=== PATIENT | male | born 1995 | race Caucasian/White ===

== ENCOUNTER 2021-07-26 01:02 | Emergency (ER) | payer MEDICAID ==
[2021-07-26] MEDS ORDERED: Midazolam 1 MG/ML 2 ML SDV ONE ×2 (01:42→02:03)
[2021-07-26] MEDS ORDERED: Haloperidol Lactate 5 MG/ML SDV ONE ×3 (01:43→02:03)
[2021-07-26] MEDS ORDERED: Haloperidol Lactate 5 MG/ML SDV IM ONE ×2 (01:43→02:03)
[2021-07-26] MEDS ORDERED: LORazepam 2 MG/ML SDV IM ONE (01:45)
[2021-07-26] MEDS ORDERED: LORazepam 2 MG/ML SDV ONE (01:46)
[2021-07-26] MEDS ORDERED: Midazolam 1 MG/ML 2 ML SDV IM ONE (02:03)
== END 2021-07-26 09:10 ==
LOC: JD.ED 01:02
DX: F10.129 Alcohol abuse with intoxication, unspecified (principal); R45.1 Restlessness and agitation; Y90.5 Blood alcohol level of 100-119 mg/100 ml
CPT/HCPCS: 36415; 80053; 80307; 85025; 96372; 99284; J1630; J2060; J2250; 99285

== ENCOUNTER 2021-08-25 14:24 | Emergency (ER) | payer SELFPAY ==
[2021-08-25] MEDS ORDERED: Dextrose 5%-0.9% NaCl 1,000 ML IV SCH (15:15)
[2021-08-25 15:56] LABS: CORONAVIRUS COVID-19 NAA NEGATIVE (NEGATIVE)
== END 2021-08-25 17:30 | disposition home or self-care (01) ==
LOC: JD.ED 14:24
DX: L73.9 Follicular disorder, unspecified (principal); Z20.822 Contact with and (suspected) exposure to COVID-19
CPT/HCPCS: 0240U; 36415; 71045; 80053; 80306; 80307; 81001; 82009; 82947; 83605; 83735; 85025; 85652; 86140; 86308; 99285; J7042

== ENCOUNTER 2021-08-26 11:25 | Emergency (ER) | payer SELFPAY ==
[2021-08-26] MEDS ORDERED: Sodium Chloride 0.9% 10 ML Syringe FLUSH PRN (11:55)
[2021-08-26] MEDS ORDERED: Ketorolac 30 MG/ML SDV IVPUSH ONE (11:56)
[2021-08-26] MEDS ORDERED: Sodium Chloride 0.9% 1,000 ML IV ONE (12:03)
[2021-08-26] MEDS ORDERED: Acetaminophen 325 MG Tab PO ONE (13:42)
== END 2021-08-26 14:05 | disposition home or self-care (01) ==
LOC: JD.ED 11:25
DX: B34.9 Viral infection, unspecified (principal)
CPT/HCPCS: 36415; 36600; 70450; 80053; 80306; 80307; 82803; 83735; 85025; 96374; 99284; A9270; J1885; J7030; J3490

== ENCOUNTER 2022-04-08 08:22 | Emergency (ER) | payer SELFPAY | END 2022-04-08 09:36 | disposition home or self-care (01) | LOC: JD.ED 08:22 | DX: K08.89 Other specified disorders of teeth and supporting structures (principal); F17.210 Nicotine dependence, cigarettes, uncomplicated | CPT/HCPCS: 99282 ==

== ENCOUNTER 2022-05-28 13:44 | Emergency (ER) | payer BC ==
[2022-05-28] MEDS ORDERED: cefTRIAXone 1 GM, Lidocaine 1% 2.1 ML IM ONE ×2 (14:13)
== END 2022-05-28 14:55 | disposition home or self-care (01) ==
LOC: JD.ED 13:44
DX: K04.7 Periapical abscess without sinus (principal); Z79.899 Other long term (current) drug therapy
CPT/HCPCS: 96372; 99282; J0696

== ENCOUNTER 2022-06-26 15:41 | Emergency (ER) | payer MEDICAID | END 2022-06-26 17:06 | disposition home or self-care (01) | LOC: JD.ED 15:41 | DX: F31.9 Bipolar disorder, unspecified (principal); I10 Essential (primary) hypertension; Z79.899 Other long term (current) drug therapy | CPT/HCPCS: 80306; 99285 ==

== ENCOUNTER 2023-01-23 12:08 | Emergency (ER) | payer MEDICAID ==
[2023-01-23 13:09] LABS: BASOPHILS ABSOLUTE AUTO 0.04 K/mm3 (0.01-0.08); EOSINOPHILS ABSOLUTE AUTO 0.45 K/mm3 (0.04-0.54); EOSINOPHILS PERCENT AUTO 11.3 (0.8-7.0); HEMATOCRIT 35.2 % (40.1-51.0); HEMOGLOBIN 12.1 gm/dl (13.7-17.5); LYMPHOCYTES ABSOLUTE AUTO 1.21 K/mm3 (1.32-3.57); LYMPHOCYTES PERCENT AUTO 30.5 % (21.8-53.1); MEAN CORPUSCULAR HEMOGLOBIN 31.5 pg (25.7-32.2); MEAN CORPUSCULAR HGB CONC 34.4 g/dl (32.2-35.5); MEAN CORPUSCULAR VOLUME 91.7 fl (79.0-92.2); MEAN PLATELET VOLUME 9.2 fl (9.4-12.3); MONOCYTES ABSOLUTE AUTO 0.41 K/mm3 (0.30-0.82); MONOCYTES PERCENT AUTO 10.3 % (5.3-12.2); NEUTROPHILS ABSOLUTE AUTO 1.86 K/mm3 (1.78-5.38); NEUTROPHILS PERCENT AUTO 46.9 % (34.0-67.9); PLATELET COUNT,PLT 217 K/mm3 (163-337); RED BLOOD CELL COUNT 3.84 M/mm3 (4.63-6.08); WHITE BLOOD CELL COUNT,WBC 3.97 K/mm3 (4.23-9.07)
[2023-01-23 13:41] LABS: ALANINE AMINOTRANSFERASE,ALT 33 U/L (16-63); ALBUMIN 3.1 g/dl (3.4-5.0); ALKALINE PHOSPHATASE 69 U/L (46-116); ASPARTATE AMNIOTRANSFERASE,AST 21 U/L (15-37); BILIRUBIN TOTAL 0.5 mg/dL (0.2-1.0); BLOOD UREA NITROGEN,BUN 12 mg/dL (7-18); BUN/CREATININE RATIO 13.3 (14-18); CALCIUM 8.3 mg/dL (8.5-10.1); CARBON DIOXIDE,CO2 29 mEq/L (21-32); CHLORIDE,CL 105 mEq/L (98-107); CREATININE 0.9 mg/dL (0.7-1.3); EST CRCL DRUG DOSING (CG) 123.29 mL/min; ESTIMATED GFR 120 mL/min (>60); GLUCOSE RANDOM 86 mg/dL (70-99); MAGNESIUM 1.5 mg/dL (1.8-2.4); PROTEIN TOTAL,TP 6.1 g/dl (6.4-8.2); SODIUM,NA 140 mEq/L (136-145); TROPONIN I HIGH SENSITIVITY 6 pg/mL (<=76)
[2023-01-23 13:43] LABS: C-REACTIVE PROTEIN < 0.2 mg/dL (<1.0)
[2023-01-23] MEDS ORDERED: Magnesium Oxide 400 MG Tab PO ONE (13:45)
== END 2023-01-23 15:00 | disposition home or self-care (01) ==
LOC: JD.ED 12:08
DX: R07.89 Other chest pain (principal); I10 Essential (primary) hypertension
CPT/HCPCS: 36415; 71045; 80053; 83735; 83880; 84484; 85025; 86140; 87635; 93005; 99285; A9270; 93010; 99284; U0002

== ENCOUNTER 2023-02-19 14:02 | Emergency (ER) | payer MEDICAID | END 2023-02-19 15:27 | disposition home or self-care (01) | LOC: JD.ED 14:02 | DX: F10.929 Alcohol use, unspecified with intoxication, unspecified (principal); I10 Essential (primary) hypertension; Z79.899 Other long term (current) drug therapy | CPT/HCPCS: 99283 ==

== ENCOUNTER 2023-03-23 21:32 | Emergency (ER) | payer MEDICAID ==
[2023-03-23 22:28] LABS: BASOPHILS ABSOLUTE AUTO 0.1 K/mm3 (0.0-0.2); EOSINOPHILS ABSOLUTE AUTO 0.3 K/mm3 (0.0-0.4); HEMATOCRIT 42.5 % (42.0-52.0); HEMOGLOBIN 15.2 gm/dl (14.0-18.0); IMMATURE GRAN ABSOLUTE AUTO 0.01 K/mm3 (0.00-0.05); IMMATURE GRAN PERCENT AUTO 0.2 % (0.0-0.4); LYMPHOCYTES ABSOLUTE AUTO 1.6 K/mm3 (1.0-4.8); LYMPHOCYTES PERCENT AUTO 25.8 % (24.0-44.0); MEAN CORPUSCULAR HGB CONC 35.8 g/dl (32.0-36.0); MEAN CORPUSCULAR VOLUME 89.5 fl (83.0-99.0); MEAN PLATELET VOLUME 9.1 fl (9.4-12.4); MONOCYTES ABSOLUTE AUTO 0.4 K/mm3 (0.0-0.8); MONOCYTES PERCENT AUTO 6.1 % (0.0-8.0); NEUTROPHILS ABSOLUTE AUTO 3.9 K/mm3 (1.8-7.7); NEUTROPHILS PERCENT AUTO 62.9 % (41.0-71.0); PLATELET COUNT,PLT 264 K/mm3 (150-400); RED BLOOD CELL COUNT 4.75 M/mm3 (4.52-5.90)
[2023-03-23] MEDS ORDERED: Lidocaine 1% 10 ML MDV INJECT ONE (22:46)
[2023-03-23 23:05] LABS: A/G RATIO 1.2 (1-2); ALBUMIN 4.1 g/dl (3.4-5.0); ANION GAP 13.7 (5-15); BILIRUBIN TOTAL 0.3 mg/dL (0.2-1.0); BUN/CREATININE RATIO 10.9 (14-18); CALCIUM 8.5 mg/dL (8.5-10.1); CREATININE 1.1 mg/dL (0.7-1.3); EST CRCL DRUG DOSING (CG) 100.87 mL/min; ETHANOL BLOOD MEDICAL 0.19 gm% (0.00); POTASSIUM,K 3.7 mEq/L (3.5-5.1); PROTEIN TOTAL,TP 7.6 g/dl (6.4-8.2); TSH 0.859 uIU/mL (0.358-3.74)
[2023-03-23] MEDS ORDERED: Nicotine 21 MG/24 Hr Patch TRDERM ONE (23:18)
[2023-03-23 23:26] LABS: BARBITURATE SCREEN,URINE NEGATIVE (CUTOFF=200); BENZODIAZEPINES SCREEN,URINE NEGATIVE (CUTOFF=150); BUPRENORPHINE SCREEN,URINE NEGATIVE (CUTOFF=10); METHADONE SCREEN, URINE NEGATIVE (CUT0FF=200); METHAMPHETAMINES SCREEN, URINE NEGATIVE (CUTOFF=500); OXYCODONE SCREEN,URINE NEGATIVE (CUT0FF=100); PROPOXYPHENE SCREEN,URINE NEGATIVE (CUTOFF=300); THC SCREEN,URINE 20 NG/ML NEGATIVE (CUTOFF=50)
[2023-03-23 23:36] LABS: AMPHETAMINES SCREEN, URINE NEGATIVE (CUTOFF=500)
[2023-03-24] MEDS ORDERED: Ondansetron 4 MG Tab.DIS PO ONE (00:33)
[2023-03-24] MEDS ORDERED: Lidocaine 1% 10 ML MDV ONE (03:38)
== END 2023-03-24 14:30 ==
LOC: JD.ED 21:32
DX: S61.012A Laceration without foreign body of left thumb without damage to nail, initial encounter (principal); R45.851 Suicidal ideations; F10.929 Alcohol use, unspecified with intoxication, unspecified; I10 Essential (primary) hypertension; Z79.899 Other long term (current) drug therapy; W26.8XXA Contact with other sharp object(s), not elsewhere classified, initial encounter
CPT/HCPCS: 12001; 36415; 80053; 80143; 80179; 80306; 80307; 84443; 85025; 99285; A9270; J3490

== ENCOUNTER 2023-04-02 10:39 | Emergency (ER) | payer MEDICAID | END 2023-04-02 11:34 | disposition home or self-care (01) | LOC: JD.ED 10:39 | DX: Z48.02 Encounter for removal of sutures (principal); I10 Essential (primary) hypertension; Z79.899 Other long term (current) drug therapy | CPT/HCPCS: 99281 ==

== ENCOUNTER 2023-04-07 17:47 | Emergency (ER) | payer MEDICAID ==
[2023-04-07] MEDS ORDERED: Ibuprofen 800 MG Tab PO ONE (19:21)
[2023-04-07] MEDS ORDERED: Amoxicillin/Clavulanate K 875-125 MG Tab PO ONE (19:21)
== END 2023-04-07 20:05 | disposition home or self-care (01) ==
LOC: JD.ED 17:47
DX: K04.7 Periapical abscess without sinus (principal); I10 Essential (primary) hypertension; Z79.899 Other long term (current) drug therapy
CPT/HCPCS: 99283; A9270; 99282

== ENCOUNTER 2023-08-31 21:21 | Emergency (ER) | payer MEDICAID | END 2023-08-31 22:00 | disposition left against medical advice (07) | LOC: JD.ED 21:21 | DX: Z53.29 Procedure and treatment not carried out because of patient's decision for other reasons (principal); I10 Essential (primary) hypertension; Z79.899 Other long term (current) drug therapy | CPT/HCPCS: 99283 ==

== ENCOUNTER 2023-11-11 01:54 | Emergency (ER) | payer MEDICAID ==
[2023-11-11 02:48] LABS: BASOPHILS ABSOLUTE AUTO 0.1 K/mm3 (0.0-0.2); BASOPHILS PERCENT AUTO 0.9 % (0.0-1.0); EOSINOPHILS ABSOLUTE AUTO 0.2 K/mm3 (0.0-0.4); EOSINOPHILS PERCENT AUTO 1.7 % (0.0-6.0); HEMATOCRIT 49.8 % (42.0-52.0); HEMOGLOBIN 18.3 gm/dl (14.0-18.0); IMMATURE GRAN ABSOLUTE AUTO 0.02 K/mm3 (0.00-0.05); IMMATURE GRAN PERCENT AUTO 0.2 % (0.0-0.4); LYMPHOCYTES ABSOLUTE AUTO 1.5 K/mm3 (1.0-4.8); LYMPHOCYTES PERCENT AUTO 16.1 % (24.0-44.0); MEAN CORPUSCULAR HEMOGLOBIN 33.9 pg (28.0-32.0); MEAN CORPUSCULAR HGB CONC 36.7 g/dl (32.0-36.0); MEAN CORPUSCULAR VOLUME 92.2 fl (83.0-99.0); MEAN PLATELET VOLUME 9.1 fl (9.4-12.4); MONOCYTES ABSOLUTE AUTO 0.8 K/mm3 (0.0-0.8); MONOCYTES PERCENT AUTO 8.9 % (0.0-8.0); NEUTROPHILS ABSOLUTE AUTO 6.5 K/mm3 (1.8-7.7); NEUTROPHILS PERCENT AUTO 72.2 % (41.0-71.0); PLATELET COUNT,PLT 292 K/mm3 (150-400)
[2023-11-11 03:12] LABS: A/G RATIO 1.1 (1-2); ALBUMIN 4.6 g/dl (3.4-5.0); ANION GAP 19.6 (5-15); BILIRUBIN TOTAL 1.3 mg/dL (0.2-1.0); BUN/CREATININE RATIO 7.9 (14-18); CALCIUM 9.1 mg/dL (8.5-10.1); CREATININE 1.9 mg/dL (0.7-1.3); EST CRCL DRUG DOSING (CG) 57.88 mL/min; ETHANOL BLOOD MEDICAL 0.15 gm% (0.00); POTASSIUM,K 3.6 mEq/L (3.5-5.1); PROTEIN TOTAL,TP 8.7 g/dl (6.4-8.2)
[2023-11-11 03:34] LABS: APPEARANCE,URINE CLEAR (Clear); BILIRUBIN,URINE NEGATIVE (Negative); COLOR,URINE YELLOW (Yellow); GLUCOSE,URINE NEGATIVE (Negative); KETONES,URINE 2+ (Negative); LEUKOCYTE ESTERASE,URINE NEGATIVE (Negative); NITRITE,URINE NEGATIVE (Negative); OCCULT BLOOD,URINE TRACE-INTACT (Negative); PROTEIN,URINE 2+ (Negative); UROBILINOGEN,URINE 0.2 (0.2-1.0)
[2023-11-11 03:42] LABS: BACTERIA,URINE FEW /hpf (FEW); EPITHELIAL CELLS,URINE 0-5 /hpf (0-5); FINE GRANULAR CASTS,URINE 0-5 /lpf (0-5); HYALINE CASTS,URINE 0-5 /lpf (0-5); RBC,URINE 0-5 /hpf (0-5); WBC,URINE 0-5 /hpf (0-5)
[2023-11-11 03:43] LABS: MUCUS,URINE FEW /hpf (FEW)
[2023-11-11 03:56] LABS: AMPHETAMINES SCREEN, URINE NEGATIVE (CUTOFF=500); BARBITURATE SCREEN,URINE NEGATIVE (CUTOFF=200); BENZODIAZEPINES SCREEN,URINE NEGATIVE (CUTOFF=150); BUPRENORPHINE SCREEN,URINE NEGATIVE (CUTOFF=10); METHADONE SCREEN, URINE NEGATIVE (CUT0FF=200); METHAMPHETAMINES SCREEN, URINE PRESUMPTIVE POSITIVE (CUTOFF=500); OXYCODONE SCREEN,URINE NEGATIVE (CUT0FF=100); THC SCREEN,URINE 20 NG/ML NEGATIVE (CUTOFF=50)
[2023-11-11] MEDS: Sodium Chloride 0.9% 1,000 ML IV ONE ×2 (04:38→06:48)
[2023-11-11] MEDS: LORazepam 2 MG/ML SDV IVPUSH ONE (10:12)
[2023-11-11] MEDS: Ondansetron 4 MG Tab.DIS PO ONE (12:03)
== END 2023-11-11 14:40 ==
LOC: JD.ED 01:54
DX: T46.5X2A Poisoning by other antihypertensive drugs, intentional self-harm, initial encounter (principal); T43.222A Poisoning by selective serotonin reuptake inhibitors, intentional self-harm, initial encounter; F10.99 Alcohol use, unspecified with unspecified alcohol-induced disorder; N28.9 Disorder of kidney and ureter, unspecified; I10 Essential (primary) hypertension; F17.210 Nicotine dependence, cigarettes, uncomplicated; Z79.899 Other long term (current) drug therapy
CPT/HCPCS: 36415; 80053; 80143; 80179; 80306; 80307; 81001; 85025; 93005; 96361; 96374; 99285-25; J2060; J7030

== ENCOUNTER 2024-02-13 20:16 | Emergency (ER) | payer MEDICAID ==
[2024-02-13 21:07] LABS: BASOPHILS ABSOLUTE AUTO 0.1 K/mm3 (0.0-0.2); EOSINOPHILS ABSOLUTE AUTO 0.2 K/mm3 (0.0-0.4); EOSINOPHILS PERCENT AUTO 3.9 % (0.0-6.0); HEMATOCRIT 45.3 % (42.0-52.0); HEMOGLOBIN 15.8 gm/dl (14.0-18.0); IMMATURE GRAN ABSOLUTE AUTO 0.01 K/mm3 (0.00-0.05); IMMATURE GRAN PERCENT AUTO 0.2 % (0.0-0.4); LYMPHOCYTES ABSOLUTE AUTO 1.5 K/mm3 (1.0-4.8); LYMPHOCYTES PERCENT AUTO 25.3 % (24.0-44.0); MEAN CORPUSCULAR HEMOGLOBIN 33.3 pg (28.0-32.0); MEAN CORPUSCULAR HGB CONC 34.9 g/dl (32.0-36.0); MEAN CORPUSCULAR VOLUME 95.4 fl (83.0-99.0); MEAN PLATELET VOLUME 9.2 fl (9.4-12.4); MONOCYTES ABSOLUTE AUTO 0.3 K/mm3 (0.0-0.8); MONOCYTES PERCENT AUTO 5.7 % (0.0-8.0); NEUTROPHILS ABSOLUTE AUTO 3.8 K/mm3 (1.8-7.7); NEUTROPHILS PERCENT AUTO 63.9 % (41.0-71.0); PLATELET COUNT,PLT 311 K/mm3 (150-400); RED BLOOD CELL COUNT 4.75 M/mm3 (4.52-5.90); WHITE BLOOD CELL COUNT,WBC 5.94 K/mm3 (3.9-11.3)
[2024-02-13 21:38] LABS: A/G RATIO 1.1 (1-2); ALBUMIN 4.2 g/dl (3.4-5.0); BILIRUBIN TOTAL 0.3 mg/dL (0.2-1.0); BUN/CREATININE RATIO 6.4 (14-18); CALCIUM 8.8 mg/dL (8.5-10.1); CREATININE 1.1 mg/dL (0.7-1.3); EST CRCL DRUG DOSING (CG) 98.14 mL/min; ETHANOL BLOOD MEDICAL 0.16 gm% (0.00); PROTEIN TOTAL,TP 7.9 g/dl (6.4-8.2); TSH 0.48 uIU/mL (0.358-3.74)
[2024-02-13 23:01] LABS: APPEARANCE,URINE CLEAR (Clear); BILIRUBIN,URINE NEGATIVE (Negative); COLOR,URINE YELLOW (Yellow); GLUCOSE,URINE NEGATIVE (Negative); KETONES,URINE NEGATIVE (Negative); LEUKOCYTE ESTERASE,URINE NEGATIVE (Negative); NITRITE,URINE NEGATIVE (Negative); OCCULT BLOOD,URINE NEGATIVE (Negative); PROTEIN,URINE NEGATIVE (Negative); UROBILINOGEN,URINE 0.2 (0.2-1.0)
[2024-02-13 23:08] LABS: BARBITURATE SCREEN,URINE NEGATIVE (CUTOFF=200); BENZODIAZEPINES SCREEN,URINE NEGATIVE (CUTOFF=150); BUPRENORPHINE SCREEN,URINE NEGATIVE (CUTOFF=10); METHADONE SCREEN, URINE NEGATIVE (CUT0FF=200); METHAMPHETAMINES SCREEN, URINE PRESUMPTIVE POSITIVE (CUTOFF=500); OXYCODONE SCREEN,URINE NEGATIVE (CUT0FF=100); THC SCREEN,URINE 20 NG/ML NEGATIVE (CUTOFF=50)
[2024-02-13 23:10] LABS: AMPHETAMINES SCREEN, URINE PRESUMPTIVE POSITIVE (CUTOFF=500)
== END 2024-02-14 08:50 | disposition home or self-care (01) ==
LOC: JD.ED 20:16
DX: N28.9 Disorder of kidney and ureter, unspecified (principal); F15.10 Other stimulant abuse, uncomplicated; F10.90 Alcohol use, unspecified, uncomplicated; I10 Essential (primary) hypertension; F17.210 Nicotine dependence, cigarettes, uncomplicated
CPT/HCPCS: 36415; 80053; 80143; 80179; 80306; 80307; 81003; 84443; 85025; 99284; 99285

== ENCOUNTER 2025-01-16 11:00 | Emergency (ER) | payer MEDICAID | END 2025-01-16 12:05 | disposition home or self-care (01) | LOC: JD.ED 11:00 | DX: M25.571 Pain in right ankle and joints of right foot (principal); I10 Essential (primary) hypertension; F17.200 Nicotine dependence, unspecified, uncomplicated | CPT/HCPCS: 73610; 99283; A9270 ==